=== PATIENT | female | born 1970 | race Caucasian/White ===

== ENCOUNTER → 2016-12-28 | Outpatient (CLI) | payer OTHER ==
[~2016-12-28] MED LIST: ANAPROX DS550 MG PO; BACTRIM DS 8001 TA1 PO; CEPHALEXIN500 M1 PO; CIPROFLOXACIN500 MG PO; CLEOCIN150 MG PO; CLOTRIMAZOLE TR10 MG MM; COMPAZINE10 MG PO; DARVOCET N 1001 TAB PO; DIFLUCAN200 MG PO; EAC MC; FLEXERIL5 MG PO; HYDROCODONE BIT1 T11 PO; IBU-8800 MG PO; IBU800 MG PO; LANTUS SOLOS100 U/M1 SC; LEVEMIR10 ML SC; METFORMIN HYDR500 MG PO; METFORMIN1000 MG PO; METFORMIN500 MG PO; MOTRIN600 MG PO; MOTRIN800 MG PO; NAPROSYN500 MG PO; NOVOLOG MI100 UNIT/1 SQ; NOVOLOG MIX 70/10 ML SC; PHENERGAN25 M1 PO; PROVENTIL0.09 MG/AC IH; PYRIDIATE200 MG PO; Peridex 473 ML473 ML PO; TEST STRIPS1 EACH MC; TRAMADOL HCL50 MG PO; TRIMOX500 MG PO; VICODIN ES 7501 TAB PO; ZESTRIL5 MG PO; ZITHROMAX Z PA250 MG PO
--- NOTE | ~2016-12-28 | WRIGHTHP ---
[place], [place] PATIENT HISTORY AND PHYSICAL EXAM NAME: SHAHIDA RABAGO [facility] #: [id number] UNIT #: [id number] ROOM: DOCTOR: AGGIE ColvinLOR BIRTHDATE: [birth year] DOS: 12/28/2016 HISTORY OF PRESENT ILLNESS: The patient was referred to the Wound Clinic from her primary care physician for a breast abscess. She has had a wound on her right breast medial aspect that started draining on its own up on Monday night. She went to see her primary care doctor yesterday and she said she did a culture of it and put her on Bactrim 1 tablet b.i.d. for 10 days and was referred here. It is an open wound at this time. She does not really have any pain as long as she do not touch it or manipulate it in any way. PAST MEDICAL HISTORY: Significant for she has had abscesses done of the left breast that looked like she had to have some type of incision and drainage for this. She has had one on her buttock as well, which was treated in the ER per patient report. She is undergoing physical therapy for a left rotator cuff tear and immobility of her left shoulder. She is a type 2 diabetic. She says her sugars are in the 200 range. FAMILY HISTORY: Significant for hypertension, kidney disease, diabetes, and stroke. SOCIAL HISTORY: She is a smoker. She smokes half a pack per day. She is single and has a boyfriend. ALLERGIES: PENICILLIN AND BERRIES. MEDICATIONS: As follows: She is on metformin 1000 mg p.o. b.i.d. and 500 mg tablets at noon, Zestril 5 mg every day, Levemir 5 units at bedtime, NovoLog 70/30, 100 units t.i.d., and Naprosyn 500 p.o. b.i.d. REVIEW OF SYSTEMS: Currently, she denies any fevers or chills, chest pain, shortness of breath, nausea, vomiting, or diarrhea. She said she has just started taking the antibiotics last night at 8:00 and then took one this morning too. Her sugars are running in the 200s. She has no change in her appetite. PHYSICAL EXAMINATION: VITAL SIGNS: As follows: Temperature is 98.2, pulse is 80, respirations 18, blood pressure is 130/76. GENERAL: This is a young female who is in no acute distress, pleasant and cooperative, mildly obese, and somewhat poor hygiene. NECK: There is no JVD. LUNGS: Clear. CARDIOVASCULAR: S1, S2, regular rate and rhythm. ABDOMEN: Obese, soft. EXTREMITIES: There is no edema. BREASTS: Her wound is located on the right breast on the medial aspect. There is some slight erythema around it. It is not entirely indurated. It is open. It is measuring 0.9 x 0.6 x 0.4. There is some visible necrotic tissue present around the periwound, a moderate amount. I was unable to express any purulent fluid at this time. The patient did not want debridement at this time as there was some necrotic tissue present, so this was not done today. [place], [place] PATIENT HISTORY AND PHYSICAL EXAM NAME: SHAHIDA RABAGO UNIT #: [id number] ROOM: DOCTOR: LOR MARCIAL M.D. BIRTHDATE: [birth year] LABORATORY DATA: She does not have any recent blood work, but her hemoglobin A1c done in 12/2015 was 8.2. ASSESSMENT AND PLAN: Breast abscess. It has already drained on its own. She is on Bactrim already. It looks like a culture has been ordered by her PCP. We will use some TheraHoney to help her to keep the wound clean and pack it loosely with Aquacel Ag ribbon and then put a foam on and have her follow up with us early next week. I did advise her to keep an eye out for any changes in the wound drainage or increasing pain or erythema or fevers or chills. The patient is to follow up with us early next week. LOR MARCIAL MD CM:HISPHYS:PATIENT HISTORY AND PHYSICAL EXAMINATION [id number] LOR MARCIAL M.D. 12/28/16 1619 interface
== END ==
LOC: WOUNDCARE 03:22
DX: N61.1 Abscess of the breast and nipple (principal); E66.9 Obesity, unspecified; E11.9 Type 2 diabetes mellitus without complications; F17.210 Nicotine dependence, cigarettes, uncomplicated

== ENCOUNTER → 2017-01-03 | Outpatient (CLI) | payer OTHER ==
--- NOTE | ~2017-01-03 | PR ---
[place], [place] PROGRESS NOTE NAME: SHAHIDA RABAGO [facility] #: [id number] UNIT #: [id number] ROOM: DOCTOR: LOR MARCIAL M.D. BIRTHDATE: [birth year] DOS: 01/03/2017 CHIEF COMPLAINT: Followup of the wound of the right breast. HISTORY OF PRESENT ILLNESS: The wound is located on the right breast. It is from an abscess. It drained on its own. It was associated with some pain and discomfort. The patient was treated with oral antibiotics per PCP, has been in the Wound Clinic for 1 week now. She was started on TheraHoney and Aquacel Ag to help pack the wound. The TheraHoney has definitely improved some of the necrotic tissue. She is doing the dressing changes on her own. She has no other specific complaints. PHYSICAL EXAMINATION: VITAL SIGNS: Stable. Temperature is 98.1, pulse of 80, respirations are 18, blood pressure is 120/80. WOUND EXAMINATION: The wound is measuring slightly bigger, which is expected as there was quite a bit of necrotic tissue present on the periphery of the wound. The patient did not allow me to debride last week. It is measuring slightly bigger at 1.5 x 1.2 but the depth has definitely improved from 2.2. There is still some visible necrotic tissue around the base of the wound and the periwound. The area of erythema is definitely improved as well. It is not acutely indurated or acutely tender. The patient did allow me to do a selective debridement. The tissue removed was just fibrin and slough only. The post-debridement measurements are unchanged. There was a minimal amount of bleeding. Instrument used was curette, forceps, and scissors. Cetacaine spray was used for topical anesthesia. ASSESSMENT AND PLAN: Breast abscess on the right breast, it is definitely improving with the current regimen. I would continue with the TheraHoney, Aquacel Ag and have her follow up next week. LOR MARCIAL MD CM:FINA [id number] LOR MARCIAL M.D. 01/04/17 0518 interface
== END ==
LOC: WOUNDCARE 01:59
DX: N61.1 Abscess of the breast and nipple (principal); E66.9 Obesity, unspecified; E11.9 Type 2 diabetes mellitus without complications

== ENCOUNTER → 2017-01-12 | Outpatient (CLI) | payer OTHER ==
--- NOTE | ~2017-01-12 | PR ---
[place], [place] PROGRESS NOTE [id number] #: [id number] ROOM: DOCTOR: LOR MARCIAL M.D. BIRTHDATE: [birth year] DOS: 01/12/2017 CHIEF COMPLAINT: Followup of the wound of the right breast. HISTORY OF PRESENT ILLNESS: The location is the right breast. It is from an abscess that drained on its own. It has been treated with antibiotics. We have been using TheraHoney and Aquacel AG to pack the wound. There was visible necrotic tissue present when she first presented. This is definitely improved. She has no pain. She has completed her antibiotics. No fevers or chills. OBJECTIVE: VITAL SIGNS: As follows: She is afebrile. Her pulse is 80, respirations 18, blood pressure is 144/84. WOUND EXAM: The wound is measuring 1.1 x 1.1 x 0.3. The base of the wound looks clean. I am unable to visualize the base very well. There is good healthy granulation tissue. There is no undermining or tunneling or purulence or cellulitis. No debridement was done, the area was cleansed with sterile Q-tip. ASSESSMENT AND PLAN: Breast abscess with a chronic wound of the right breast. We will switch to a collagen dressing for now and have her follow up with us in 2 weeks. Ideally, we would like her to come back next week, but she says she is unable to get a ride until 2 weeks from now, so we did suggest that if she has a problem beforehand she is to call. LOR MARCIAL MD CM:PNTRANS [phone] LOR MARCIAL M.D. 01/12/17 2214 interface
== END ==
LOC: WOUNDCARE 01:30
DX: N61.1 Abscess of the breast and nipple (principal); E66.9 Obesity, unspecified; E11.9 Type 2 diabetes mellitus without complications; I48.91 Unspecified atrial fibrillation

== ENCOUNTER → 2017-01-26 | Outpatient (CLI) | payer OTHER ==
--- NOTE | ~2017-01-26 | PR ---
[place], [place] PROGRESS NOTE [id number] #: [id number] ROOM: DOCTOR: LOR MARCIAL M.D. BIRTHDATE: [birth year] DOS: 01/26/2017 WOUND CARE PROGRESS NOTE CHIEF COMPLAINT: An abscess of the right breast. HISTORY OF PRESENT ILLNESS: The location of the wound is on the right breast. It was drained on its own. It was fairly deep when she presented with some necrotic tissue and undermining. It has been steadily improving. She comes in today stating that it is not draining. She put the tiny piece of Puracol and says it is healing quite well. She has no complaints. PHYSICAL EXAMINATION: VITAL SIGNS: Stable. Temperature is 98.2, pulse of 90, respirations 18, blood pressure is 150/98. WOUND EXAMINATION: The wound is looking essentially healed. There is one very minute spot that is still minimally open at 0.1 x 0.1 x 0.1. The rest is healed quite well. ASSESSMENT AND PLAN: Healed wound from an abscess. I would just recommend to put a little bacitracin on it and a Band-Aid at this point and she can be discharged from the Wound Clinic. If for some reason she has a problem in the future, she should come back to the wound clinic, but at this point it is okay to be discharged from my standpoint. LOR MARCIAL MD CM:PNTRANS [phone] LOR MARCIAL M.D. 01/27/17 0323 interface
== END ==
LOC: WOUNDCARE 02:44
DX: N61.1 Abscess of the breast and nipple (principal); E11.9 Type 2 diabetes mellitus without complications; E66.9 Obesity, unspecified

== ENCOUNTER → 2018-03-06 | Outpatient (CLI) | payer OTHER ==
[2018-03-06 11:18] LABS: BASO # 0.1 10*3/uL (0.0-0.1); BASO % 0.7 % (0.0-1.0); EOS # 0.3 10*3/uL (0.0-0.4); EOS % 2.7 % (1.0-4.0); HEMATOCRIT 42.6 % (37.0-47.0); HEMOGLOBIN 13.6 g/dl (12.0-16.0); LYMPH # 2.6 10*3/uL (1.3-4.4); LYMPH % 24.4 % (27.0-41.0); MEAN CELL VOLUME 90.1 fl (81.0-99.0); MEAN CORPUSCULAR HGB 28.8 pg (27.0-31.0); MEAN CORPUSCULAR HGB CONC 31.9 g/dl (33.0-37.0); MEAN PLATELET VOLUME 9.9 fl (9.6-12.3); MONO # 0.6 10*3/uL (0.1-1.0); MONO % 5.2 % (3.0-9.0); NEUT # 7.1 10*3/uL (2.3-7.9); NEUT % 66.3 % (47.0-73.0); PLATELET COUNT AUTOMATED 239 10*3/uL (130-400); RED BLOOD COUNT 4.73 10*6/uL (4.10-5.10); RED CELL DISTRI WIDTH 13.2 % (0-14.5); WHITE BLOOD COUNT 10.7 10*3/uL (4.8-10.8)
[2018-03-06 11:26] LABS: BILIRUBIN NEGATIVE (NEGATIVE); BLOOD NEGATIVE (NEGATIVE); CLARITY CLEAR (CLEAR); COLOR YELLOW (YELLOW); GLUCOSE NEGATIVE (NEGATIVE); KETONE NEGATIVE (NEGATIVE); LEUKO ESTERASE NEGATIVE (NEGATIVE); NITRITE NEGATIVE (NEGATIVE); PH 5.5 (5.0-9.0); SPECIFIC GRAVITY 1.025 (1.005-1.030); UROBILINOGEN 0.2 E.U./dl (0.2-1.0)
[2018-03-06 11:51] LABS: ALBUMIN 3.6 gm/dl (3.1-4.5); BUN 15 mg/dl (7-24); CHLORIDE 106 mmol/L (98-107); CHOLESTEROL 127 mg/dL (<200); CREATININE 0.98 mg/dL (0.55-1.02); HDL CHOLESTEROL 43 mg/dl (40-60); LDL CHOLESTEROL 66 mg/dL (9-159); POTASSIUM 4.2 mmol/L (3.5-5.1); SGOT/AST 7 IU/L (3-35); SGPT/ALT 23 U/L (12-78); SODIUM 141 mmol/L (136-145); TOTAL PROTEIN 7.3 gm/dL (6.4-8.2); TRIGLYCERIDES 90 mg/dl (<150); VLDL CHOLESTEROL 18 mg/dL (6-40)
[2018-03-06 11:52] LABS: ALKALINE PHOSPHATASE 84 U/L (45-117)
[2018-03-06 12:07] LABS: BACTERIA 2+; WBC 0-2 wbc/hpf (0-5)
== END | disposition home or self-care (01) ==
LOC: LAB 10:49
PROVIDERS: Nurse Practitioner Family
DX: E11.9 Type 2 diabetes mellitus without complications (principal); E78.2 Mixed hyperlipidemia; I10 Essential (primary) hypertension

== ENCOUNTER → 2018-07-11 | Outpatient (CLI) | payer OTHER | END | disposition home or self-care (01) | LOC: MAMMO 13:42 | DX: Z12.31 Encounter for screening mammogram for malignant neoplasm of breast (principal); Z23 Encounter for immunization; I10 Essential (primary) hypertension; E78.5 Hyperlipidemia, unspecified; E10.65 Type 1 diabetes mellitus with hyperglycemia ==

== ENCOUNTER → 2019-03-29 | Outpatient (CLI) | payer OTHER | END | disposition home or self-care (01) | LOC: RAD 13:40 | DX: M54.12 Radiculopathy, cervical region (principal); M25.442 Effusion, left hand ==

== ENCOUNTER → 2019-04-29 | Outpatient (CLI) | payer OTHER | END | disposition home or self-care (01) | LOC: RAD 14:20 | DX: M79.645 Pain in left finger(s) (principal); M25.512 Pain in left shoulder; M54.12 Radiculopathy, cervical region ==

== ENCOUNTER → 2020-11-19 | Outpatient (CLI) | payer OTHER | END | disposition home or self-care (01) | LOC: MAMMO 14:15 | PROVIDERS: ATTEND Nurse Practitioner Family | DX: Z12.31 Encounter for screening mammogram for malignant neoplasm of breast (principal); E11.3593 Type 2 diabetes mellitus with proliferative diabetic retinopathy without macular edema, bilateral ==

== ENCOUNTER → 2021-08-16 | Outpatient (CLI) | payer OTHER | END | disposition home or self-care (01) | LOC: US 17:25 | PROVIDERS: ATTEND Nurse Practitioner Family | DX: R60.0 Localized edema (principal); E11.3593 Type 2 diabetes mellitus with proliferative diabetic retinopathy without macular edema, bilateral; M79.671 Pain in right foot ==

== ENCOUNTER → 2021-09-13 | Outpatient (CLI) | payer OTHER | END | disposition home or self-care (01) | LOC: RAD 11:28 | PROVIDERS: ATTEND Nurse Practitioner Family | DX: M79.671 Pain in right foot (principal); R60.0 Localized edema; E79.0 Hyperuricemia without signs of inflammatory arthritis and tophaceous disease ==

== ENCOUNTER → 2022-02-03 | Outpatient (CLI) | payer OTHER | END | disposition home or self-care (01) | LOC: US 09:26 | PROVIDERS: ATTEND Nurse Practitioner Family | DX: E11.3593 Type 2 diabetes mellitus with proliferative diabetic retinopathy without macular edema, bilateral (principal); N18.2 Chronic kidney disease, stage 2 (mild) ==

== ENCOUNTER → 2022-06-28 | Outpatient (CLI) | payer OTHER | END | disposition home or self-care (01) | LOC: RAD 15:16 | PROVIDERS: ATTEND Nurse Practitioner Family | DX: M79.671 Pain in right foot (principal) ==

== ENCOUNTER → 2022-12-07 | Outpatient (CLI) | payer OTHER ==
[2022-12-07 10:52] LABS: BASO # 0.1 10*3/uL (0.0-0.1); BASO % 0.6 % (0.0-1.0); EOS # 0.1 10*3/uL (0.0-0.4); EOS % 1.5 % (1.0-4.0); LYMPH % 24.9 % (27.0-41.0); MEAN CELL VOLUME 92.1 fl (81.0-99.0); MEAN CORPUSCULAR HGB 28.9 pg (27.0-31.0); MEAN CORPUSCULAR HGB CONC 31.4 g/dl (33.0-37.0); MEAN PLATELET VOLUME 9.7 fl (9.6-12.3); MONO # 0.5 10*3/uL (0.1-1.0); NEUT # 5.2 10*3/uL (2.3-7.9); NEUT % 66.5 % (47.0-73.0); PLATELET COUNT AUTOMATED 257 10*3/uL (130-400); RED BLOOD COUNT 4.56 10*6/uL (4.10-5.10); RED CELL DISTRI WIDTH 15.9 % (0-14.5); WHITE BLOOD COUNT 7.9 10*3/uL (4.8-10.8)
[2022-12-07 11:55] LABS: ALKALINE PHOSPHATASE 95 U/L (46-116); BUN 15 mg/dl (9-23); CHLORIDE 108 mmol/L (98-107); CHOLESTEROL 152 mg/dL (<200); LDL CHOLESTEROL 80 mg/dL (9-159); POTASSIUM 4.6 mmol/L (3.4-5.1); SGPT/ALT 17 U/L (10-49); TOTAL PROTEIN 6.6 gm/dL (6.0-8.0); TRIGLYCERIDES 104 mg/dl (<150)
== END | disposition home or self-care (01) ==
LOC: LAB 10:15
PROVIDERS: ATTEND Nurse Practitioner Family
DX: E78.5 Hyperlipidemia, unspecified (principal); I10 Essential (primary) hypertension; E11.3593 Type 2 diabetes mellitus with proliferative diabetic retinopathy without macular edema, bilateral

== ENCOUNTER → 2023-03-07 | Outpatient (CLI) | payer OTHER ==
[2023-03-07 12:00] LABS: BASO % 0.5 % (0.0-1.0); EOS # 0.1 10*3/uL (0.0-0.4); EOS % 1.5 % (1.0-4.0); LYMPH # 1.6 10*3/uL (1.3-4.4); LYMPH % 21.4 % (27.0-41.0); MEAN CELL VOLUME 90.7 fl (81.0-99.0); MEAN CORPUSCULAR HGB 28.3 pg (27.0-31.0); MEAN CORPUSCULAR HGB CONC 31.2 g/dl (33.0-37.0); MEAN PLATELET VOLUME 9.4 fl (9.6-12.3); MONO # 0.4 10*3/uL (0.1-1.0); MONO % 4.9 % (3.0-9.0); NEUT # 5.3 10*3/uL (2.3-7.9); NEUT % 70.8 % (47.0-73.0); PLATELET COUNT AUTOMATED 303 10*3/uL (130-400); RED BLOOD COUNT 4.63 10*6/uL (4.10-5.10); RED CELL DISTRI WIDTH 13.8 % (0-14.5); WHITE BLOOD COUNT 7.5 10*3/uL (4.8-10.8)
[2023-03-07 12:29] LABS: ALKALINE PHOSPHATASE 139 U/L (46-116); BUN 20 mg/dl (9-23); CHLORIDE 101 mmol/L (98-107); CHOLESTEROL 127 mg/dL (<200); LDL CHOLESTEROL 62 mg/dL (9-159); POTASSIUM 4.7 mmol/L (3.4-5.1); SGPT/ALT 14 U/L (10-49); TOTAL PROTEIN 6.8 gm/dL (6.0-8.0); TRIGLYCERIDES 101 mg/dl (<150)
== END | disposition home or self-care (01) ==
LOC: LAB 11:14
PROVIDERS: ATTEND Nurse Practitioner Family
DX: E11.3593 Type 2 diabetes mellitus with proliferative diabetic retinopathy without macular edema, bilateral (principal); I10 Essential (primary) hypertension; E66.9 Obesity, unspecified; F17.210 Nicotine dependence, cigarettes, uncomplicated; E78.5 Hyperlipidemia, unspecified

== ENCOUNTER → 2023-07-05 | Outpatient (CLI) | payer OTHER ==
[2023-07-05 09:56] LABS: BASO % 0.3 % (0.0-1.0); EOS # 0.1 10*3/uL (0.0-0.4); HEMATOCRIT 42.8 % (37.0-47.0); LYMPH # 1.6 10*3/uL (1.3-4.4); LYMPH % 14.9 % (27.0-41.0); MEAN CELL VOLUME 88.6 fl (81.0-99.0); MEAN CORPUSCULAR HGB CONC 31.5 g/dl (33.0-37.0); MEAN PLATELET VOLUME 9.6 fl (9.6-12.3); MONO # 0.5 10*3/uL (0.1-1.0); MONO % 4.8 % (3.0-9.0); NEUT # 8.1 10*3/uL (2.3-7.9); NEUT % 78.3 % (47.0-73.0); PLATELET COUNT AUTOMATED 246 10*3/uL (130-400); RED BLOOD COUNT 4.83 10*6/uL (4.10-5.10); RED CELL DISTRI WIDTH 14.6 % (0-14.5); WHITE BLOOD COUNT 10.4 10*3/uL (4.8-10.8)
[2023-07-05 10:07] LABS: URINE CREATININE RANDOM 199.6 mg/dL
[2023-07-05 10:30] LABS: POTASSIUM 4.7 mmol/L (3.4-5.1); TOTAL PROTEIN 6.9 gm/dL (6.0-8.0)
== END | disposition home or self-care (01) ==
LOC: LAB 09:29
PROVIDERS: ATTEND Nurse Practitioner Family
DX: I10 Essential (primary) hypertension (principal); E66.9 Obesity, unspecified; E11.3593 Type 2 diabetes mellitus with proliferative diabetic retinopathy without macular edema, bilateral; E78.5 Hyperlipidemia, unspecified

== ENCOUNTER → 2023-12-18 | Outpatient (CLI) | payer OTHER | END | disposition home or self-care (01) | LOC: MAMMO 01:30 | PROVIDERS: ATTEND Nurse Practitioner Family | DX: Z12.31 Encounter for screening mammogram for malignant neoplasm of breast (principal) ==

== ENCOUNTER → 2024-02-23 | Outpatient (CLI) | payer OTHER ==
[2024-02-23 09:41] LABS: BASO # 0.1 10*3/uL (0.0-0.1); BASO % 0.6 % (0.0-1.0); EOS # 0.2 10*3/uL (0.0-0.4); EOS % 1.8 % (1.0-4.0); HEMATOCRIT 44.3 % (37.0-47.0); LYMPH # 2.1 10*3/uL (1.3-4.4); LYMPH % 23.6 % (27.0-41.0); MEAN CELL VOLUME 88.8 fl (81.0-99.0); MEAN CORPUSCULAR HGB 28.3 pg (27.0-31.0); MEAN CORPUSCULAR HGB CONC 31.8 g/dl (33.0-37.0); MEAN PLATELET VOLUME 9.6 fl (9.6-12.3); MONO # 0.5 10*3/uL (0.1-1.0); MONO % 5.7 % (3.0-9.0); NEUT % 67.1 % (47.0-73.0); PLATELET COUNT AUTOMATED 231 10*3/uL (130-400); RED BLOOD COUNT 4.99 10*6/uL (4.10-5.10); RED CELL DISTRI WIDTH 13.4 % (0-14.5); WHITE BLOOD COUNT 8.9 10*3/uL (4.8-10.8)
[2024-02-23 10:21] LABS: ALKALINE PHOSPHATASE 127 U/L (46-116); BUN 13 mg/dl (9-23); CHLORIDE 103 mmol/L (98-107); CHOLESTEROL 185 mg/dL (<200); LDL CHOLESTEROL 116 mg/dL (9-159); POTASSIUM 3.6 mmol/L (3.4-5.1); SGPT/ALT 22 U/L (5-49); TOTAL PROTEIN 6.5 gm/dL (6.0-8.0); TRIGLYCERIDES 132 mg/dl (<150)
== END | disposition home or self-care (01) ==
LOC: LAB 09:26
PROVIDERS: ATTEND Nurse Practitioner Family
DX: I10 Essential (primary) hypertension (principal); E78.5 Hyperlipidemia, unspecified; E11.3593 Type 2 diabetes mellitus with proliferative diabetic retinopathy without macular edema, bilateral; E66.9 Obesity, unspecified

== ENCOUNTER → 2024-06-05 | Outpatient (CLI) | payer OTHER ==
[2024-06-05 10:19] LABS: BASO # 0.1 10*3/uL (0.0-0.1); BASO % 0.7 % (0.0-1.0); EOS # 0.2 10*3/uL (0.0-0.4); EOS % 2.3 % (1.0-4.0); HEMATOCRIT 43.8 % (37.0-47.0); LYMPH # 2.5 10*3/uL (1.3-4.4); LYMPH % 28.4 % (27.0-41.0); MEAN CELL VOLUME 91.3 fl (81.0-99.0); MEAN CORPUSCULAR HGB 29.2 pg (27.0-31.0); MEAN PLATELET VOLUME 9.6 fl (9.6-12.3); MONO # 0.5 10*3/uL (0.1-1.0); MONO % 5.5 % (3.0-9.0); NEUT # 5.6 10*3/uL (2.3-7.9); NEUT % 62.4 % (47.0-73.0); PLATELET COUNT AUTOMATED 267 10*3/uL (130-400); RED CELL DISTRI WIDTH 14.6 % (0-14.5); WHITE BLOOD COUNT 8.9 10*3/uL (4.8-10.8)
[2024-06-05 10:29] LABS: URINE CREATININE RANDOM 157.37 mg/dL
[2024-06-05 10:59] LABS: POTASSIUM 4.1 mmol/L (3.4-5.1); TOTAL PROTEIN 6.9 gm/dL (6.0-8.0)
== END | disposition home or self-care (01) ==
LOC: LAB 09:48
PROVIDERS: ATTEND Nurse Practitioner Family
DX: I10 Essential (primary) hypertension (principal); E66.9 Obesity, unspecified; E11.3593 Type 2 diabetes mellitus with proliferative diabetic retinopathy without macular edema, bilateral

== ENCOUNTER → 2024-09-02 | Outpatient (CLI) | payer OTHER ==
[2024-09-05 16:07] LABS: GLUTAMIC ACID DECARB AB <5.0 U/mL (0.0-5.0)
== END | disposition home or self-care (01) ==
LOC: LAB 09:35
PROVIDERS: ATTEND Nurse Practitioner Family
DX: E11.9 Type 2 diabetes mellitus without complications (principal)

== ENCOUNTER → 2024-09-09 | Outpatient (CLI) | payer OTHER ==
[2024-09-11 17:06] LABS: GLUTAMIC ACID DECARB AB <5.0 U/mL (0.0-5.0)
== END | disposition home or self-care (01) ==
LOC: LAB 09:47
PROVIDERS: Student in an Organized Health Care Education/Training Program; ATTEND Internal Medicine Endocrinology, Diabetes & Metabolism
DX: E11.9 Type 2 diabetes mellitus without complications (principal)

== ENCOUNTER → 2024-12-04 | Outpatient (CLI) | payer OTHER ==
[2024-12-04 12:57] LABS: POTASSIUM 4.1 mmol/L (3.4-5.1)
== END | disposition home or self-care (01) ==
LOC: LAB 11:54
PROVIDERS: ATTEND Internal Medicine Nephrology
DX: E78.5 Hyperlipidemia, unspecified (principal)

== ENCOUNTER → 2025-01-08 | Outpatient (CLI) | payer OTHER | END | disposition home or self-care (01) | LOC: CT 00:14 | PROVIDERS: ATTEND Internal Medicine Nephrology | DX: Z12.2 Encounter for screening for malignant neoplasm of respiratory organs (principal); F17.210 Nicotine dependence, cigarettes, uncomplicated; I25.10 Atherosclerotic heart disease of native coronary artery without angina pectoris; J43.2 Centrilobular emphysema; R91.1 Solitary pulmonary nodule ==

== ENCOUNTER → 2025-03-07 | Outpatient (CLI) | payer OTHER ==
[2025-03-07 09:41] LABS: POTASSIUM 4.1 mmol/L (3.4-5.1); TOTAL PROTEIN 6.2 gm/dL (6.0-8.0)
== END | disposition home or self-care (01) ==
LOC: LAB 07:56
PROVIDERS: Internal Medicine Nephrology; Student in an Organized Health Care Education/Training Program; ATTEND Internal Medicine Endocrinology, Diabetes & Metabolism
DX: E78.5 Hyperlipidemia, unspecified (principal); D35.01 Benign neoplasm of right adrenal gland

== ENCOUNTER → 2025-06-12 | Outpatient (CLI) | payer OTHER | END | disposition home or self-care (01) | LOC: MAMMO 11:30 | PROVIDERS: ATTEND Internal Medicine Nephrology | DX: Z12.31 Encounter for screening mammogram for malignant neoplasm of breast (principal) ==

== ENCOUNTER → 2025-06-25 | Outpatient (CLI) | payer OTHER ==
[2025-06-25 11:00] LABS: BUN 43.0 mg/dl (9-23); LDL CHOLESTEROL 68.0 mg/dL (9-159); SGPT/ALT 14.0 U/L (5-49)
== END | disposition home or self-care (01) ==
LOC: LAB 10:06
PROVIDERS: Internal Medicine; ATTEND Internal Medicine Endocrinology, Diabetes & Metabolism
DX: E10.65 Type 1 diabetes mellitus with hyperglycemia (principal); E78.5 Hyperlipidemia, unspecified

== ENCOUNTER → 2025-07-28 | Outpatient (CLI) | payer OTHER | END | disposition home or self-care (01) | LOC: US 08:30 | PROVIDERS: ATTEND Internal Medicine Endocrinology, Diabetes & Metabolism | DX: I10 Essential (primary) hypertension (principal); E11.9 Type 2 diabetes mellitus without complications ==

== ENCOUNTER → 2025-07-29 | Outpatient (CLI) | payer OTHER | END | disposition home or self-care (01) | LOC: MAMMO 02:50 | PROVIDERS: ATTEND Internal Medicine Nephrology | DX: R92.1 Mammographic calcification found on diagnostic imaging of breast (principal); R92.312 Mammographic fatty tissue density, left breast; R92.8 Other abnormal and inconclusive findings on diagnostic imaging of breast ==